=== PATIENT | female | born 1965 | race American Indian/Alaskan Native ===

== ENCOUNTER 2018-06-01 19:04 | Emergency (ER) | payer OTHER, BC ==
[2018-06-01 19:30] VITALS: BP 153/86; PULSE 89; RESP 18; TEMP 98; O2SAT 100
--- NOTE | 2018-06-01 21:11 | C.PDOC ---
Time Seen by Provider: 06/01/18 19:41 Chief Complaint (Nursing): Lower Extremity Problem/Injury Past Medical History Vital Signs: Last Vital Signs Temp 98 F 06/01/18 19:25 Pulse 89 06/01/18 19:25 Resp 18 06/01/18 19:25 BP 153/86 H 06/01/18 19:25 Pulse Ox 100 06/01/18 19:25 - Medical History PMH: Asthma, HTN, Hyperlipidemia Surgical History: Appendectomy, Cholecystectomy - Social History Hx Alcohol Use: Yes Hx Substance Use: No - Immunization History Hx Tetanus Toxoid Vaccination: Yes Hx Influenza Vaccination: Yes Hx Pneumococcal Vaccination: No ED Course And Treatment O2 Sat by Pulse Oximetry: 100 Disposition Counseled Patient/Family Regarding: Studies Performed, Diagnosis, Need For Followup - Disposition Referrals: Brandyn Cohen DO [Primary Care Provider] - Ramon Moura DPM [Doctor Podiatric Medicine] - Disposition: HOME/ ROUTINE Disposition Time: 21:10 Condition: STABLE Instructions: Toe Injury (DC) Forms: [facility] (Serbian), General Discharge Instructions, Work Excuse - Clinical Impression Clinical Impression: Contusion, toes
--- NOTE | 2018-06-01 21:12 | C.PDOC ---
History Of Present Illness 52 year old female present to ED s/p injury to right foot. Patient states that the "jugs fell from the cart fell and hit my right toe area" while she was at work. Patient denies experiencing any numbness or weakness. Time Seen by Provider: 06/01/18 19:41 Chief Complaint (Nursing): Lower Extremity Problem/Injury History Per: Patient History/Exam Limitations: no limitations Onset/Duration Of Symptoms: Hrs Current Symptoms Are (Timing): Still Present - Ankle/Foot Description Of Injury: Struck With Object Past Medical History Reviewed: Historical Data, Nursing Documentation, Vital Signs Vital Signs: Last Vital Signs Temp 98 F 06/01/18 19:25 Pulse 89 06/01/18 19:25 Resp 18 06/01/18 19:25 BP 153/86 H 06/01/18 19:25 Pulse Ox 100 06/01/18 19:25 - Medical History PMH: Asthma, HTN, Hyperlipidemia Surgical History: Appendectomy, Cholecystectomy - Social History Hx Alcohol Use: Yes Hx Substance Use: No - Immunization History Hx Tetanus Toxoid Vaccination: Yes Hx Influenza Vaccination: Yes Hx Pneumococcal Vaccination: No Review Of Systems Constitutional: Negative for: Fever, Chills, Weakness Eyes: Negative for: Redness, Other (scleral icterus) ENT: Negative for: Mouth Swelling Cardiovascular: Negative for: Chest Pain Respiratory: Negative for: Cough, Shortness of Breath Gastrointestinal: Negative for: Nausea, Vomiting, Diarrhea Genitourinary: Negative for: Dysuria, Hematuria Musculoskeletal: Positive for: Foot Pain (right). Negative for: Back Pain Neurological: Negative for: Weakness, Numbness, Dizziness Physical Exam - Physical Exam Appears: Well, Non-toxic, No Acute Distress Skin: Normal Color, Warm, No Rash Head: Atraumatic, Normacephalic Eye(s): bilateral: Normal Inspection, PERRL, EOMI Neck: Normal ROM, Supple Chest: Symmetrical, No Deformity Cardiovascular: Rhythm Regular, No Murmur Respiratory: No Accessory Muscle Use Extremity: Tenderness (3rd, 4th, and 5th toes), Capillary Refill (<2 seconds), Swelling (redness and swelling to toes distally), No Other (ecchymosis under nail of the right toes, no deformity) Extremity: Left: Atraumatic, Normal ROM Pulses: Left Radial: Normal, Right Radial: Normal, Left Dorsalis Pedis: Normal, Right Dorsalis Pedis: Normal Neurological/Psych: Oriented x3, Normal Speech, Normal Cognition ED Course And Treatment O2 Sat by Pulse Oximetry: 100 (RA) Medical Decision Making Medical Decision Making: Impression: Right toe injury Plan: Right Foot X-ray ordered for patient. Patient given Motrin PO. Disposition - Disposition Referrals: Ramon Moura DPM [Doctor Pod[facility]] - Branydn Cohen DO [Primary Care Provider] - Instructions: Toe Injury (DC) Forms: General Discharge Instructions, [facility] (Welsh), Work Excuse - Clinical Impression Clinical Impression: Contusion, toes - PA / CONTROL ENGINEER / Resident Statement MD/DO has reviewed & agrees with the documentation as recorded. (Tiara Matos) - Scribe Statement The provider has reviewed the documentation as recorded by the Scribe (Tiara Matos) All medical record entries made by the Scribe were at my direction and personally dictated by me. I have reviewed the chart and agree that the record accurately reflects my personal performance of the history, physical exam, medical decision making, and the department course for this patient. I have also personally directed, reviewed, and agree with the discharge instructions and disposition.
--- NOTE | 2018-06-02 09:48 | RAD ---
Date of service: 06/01/2018 PROCEDURE: Right Foot Radiographs. HISTORY: injury COMPARISON: None. FINDINGS: BONES: Bone alignment and mineralization are normal. There is no acute displaced fracture or bone destruction. There is an old fracture deformity in the distal diaphysis of the 5th metacarpal. 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 Mild hallux. SOFT TISSUES: Mild periarticular soft tissue swelling at the 1st MTP joint. OTHER FINDINGS: None. IMPRESSION: No acute displaced fracture or dislocation.
== END 2018-06-01 21:21 | disposition home or self-care (01) ==
LOC: C.ER 19:04 → SUPCPDRO 19:04 → C.ER 21:21
DX: S90.121A Contusion of right lesser toe(s) without damage to nail, initial encounter (principal); W22.8XXA Striking against or struck by other objects, initial encounter; Y92.89 Other specified places as the place of occurrence of the external cause; Y99.0 Civilian activity done for income or pay